=== PATIENT | male | born 1985 | race Caucasian/White ===

== ENCOUNTER 2019-07-26 14:40 | Emergency (ER) | payer OTHER ==
[~2019-07-26] VITALS: Ht 180.3 cm; Wt 95.7 kg
[~2019-07-26 14:40] MED LIST: CYCLOBENZAPRINE5 MG PO; IBUPROFEN 800800 MG PO; NORCO 5-325 TA1 EACH PO; VALIUM5 MG PO
[2019-07-26 15:33] LABS: ABSOLUTE EOSINOPHILS 0.1 thou/uL (0.0-0.7); ABSOLUTE LYMPHOCYTES 2.3 thou/uL (0.8-5.3); ABSOLUTE MONOCYTES 0.5 thou/uL (0.0-1.2); ABSOLUTE NEUTROPHILS 2.9 thou/uL (1.6-8.1); BASOPHILS 0.5 %; EOSINOPHILS 1.2 %; LYMPHOCYTES 39.6 %; MCH 30.9 pg (26.0-34.0); MCHC 35.7 g/dL (28.0-37.0); MCV 86.6 fL (80.0-100.0); MONOCYTES 8.1 %; NUCLEATED RBCS 0 /100WBC; PLATELET COUNT* 236 thou/uL (150-400); POLYS 50.6 %; RBC 4.85 mil/uL (4.50-6.00); RDW-CV 12.3 % (10.5-14.5); WBC 5.7 thou/uL (4.0-11.0)
[2019-07-26 15:42] LABS: CALCIUM 8.3 mg/dL (8.5-10.1); CREATININE 1.2 mg/dL (0.6-1.3); POTASSIUM 3.8 mmol/L (3.5-5.1)
[2019-07-26 15:46] LABS: ALBUMIN 3.8 g/dL (3.4-5.0); TOTAL BILIRUBIN 0.5 mg/dL (<0.1-1.0)
[2019-07-26] MEDS ORDERED: PEPCID20 MG PO (16:16)
[2019-07-26] MEDS ORDERED: OMEPRAZOLE 20 M20 M1 PO (16:16)
[2019-07-26] MEDS ORDERED: VISTARIL 25 MG25 M1 PO (16:20)
[2019-07-26 16:36] VITALS: BP 126/85
--- NOTE | 2019-07-27 15:25 | EKG ---
[place] [address] ELECTROCARDIOGRAM REPORT Name: MILTON HICKMAN Room: [facility]#: [id number] Admission: 07/26/19 Attend Phys: Discharge: 07/26/19 Date of : 87 Date of Service: 07/26/19 1442 Report #: [id number] THIS REPORT FOR: //name// [facility] ED Test Date: 2019-07-26 Test Time: 14:42:59 Pat Name: MILTON CHAVEZAE Department: Room: Gender: [employer] Dispatcher: [place] : 1985 Requested By: Shekhar Bethea Order Number: [id number] MD: Darion Ramsey Measurements Intervals [place] Rate: 80 P: 47 SD: 158 QRS: 78 QRSD: 90 T: 41 QT: 350 QTc: 404 Interpretive Statements Sinus rhythm No previous ECG available for comparison Electronically Signed On 07-27-2019 15:24:02 CDT by Darion Ramsey [email or web address] <ELECTRONICALLY SIGNED> By: Darion Ramsey MD, [facility] 07/27/19 1524 1442 1442 Darion Ramsey MD, FACC /EPI
== END 2019-07-26 16:37 | disposition home or self-care (01) ==
LOC: M.ERS 14:40
PROVIDERS: Physician Assistant
DX: R07.9 Chest pain, unspecified (principal); F41.9 Anxiety disorder, unspecified